=== PATIENT | female | born 1960 | race Caucasian/White ===

== ENCOUNTER 2018-11-23 07:54 | Day surgery (SDC) | payer OTHER ==
[~2018-11-23] VITALS: Ht 170.2 cm; Wt 86.2 kg
[~2018-11-23 07:54] MED LIST: Dicyclomine HCl20 MG PO; NP THYROID60 MG PO; SUPPLEMENTS
== END 2018-11-23 10:50 | disposition home or self-care (01) ==
LOC: ORSCSDS 07:54
PROVIDERS: Internal Medicine Gastroenterology
PROC: 0DBP8ZX Excision of Rectum, Via Natural or Artificial Opening Endoscopic, Diagnostic (ICD-10-PCS; principal; 2018-11-23 09:30)
PROC: 0DBE8ZX Excision of Large Intestine, Via Natural or Artificial Opening Endoscopic, Diagnostic (ICD-10-PCS; principal; 2018-11-23 09:30)
DX: R10.12 Left upper quadrant pain (principal); K62.1 Rectal polyp; K92.9 Disease of digestive system, unspecified; R10.32 Left lower quadrant pain; J45.909 Unspecified asthma, uncomplicated; R19.7 Diarrhea, unspecified; K57.30 Diverticulosis of large intestine without perforation or abscess without bleeding; F17.210 Nicotine dependence, cigarettes, uncomplicated; Z79.899 Other long term (current) drug therapy
CPT/HCPCS: 88305; J2250; J7120

== ENCOUNTER → 2019-09-26 | Outpatient (CLI) | payer OTHER | END | disposition home or self-care (01) | LOC: LAB SHORT 06:42 → PLD 06:42 | DX: N85.00 Endometrial hyperplasia, unspecified (principal) | CPT/HCPCS: 88305 ==